=== PATIENT | female | born 1990 | race Caucasian/White ===

== ENCOUNTER 2017-08-01 08:13 | Outpatient (CLI) | payer OTHER | END 2017-08-01 08:14 | disposition critical access hospital (66) | LOC: EMS 08:13 | PROVIDERS: ATTEND Surgery | DX: R10.9 Unspecified abdominal pain (principal) | CPT/HCPCS: A0425; A0429 ==

== ENCOUNTER 2017-08-01 08:16 | Emergency (ER) | payer OTHER ==
[2017-08-01 08:32] LABS: BILIRUBIN,URINE NEGATIVE (NEGATIVE); KETONES,URINE (UA) NEGATIVE (NEGATIVE); OCCULT BLOOD,URINE LARGE (NEGATIVE)
[2017-08-01 08:33] LABS: CLARITY,URINE SL. CLOUDY (CLEAR)
[2017-08-01 08:35] LABS: HCG UR QUAL NEGATIVE
[2017-08-01 08:43] LABS: BACTERIA,URINE Moderate /HPF (None Seen); SQUAMOUS EPITHELIAL CELL,UR NONE SEEN (<= Few)
--- NOTE | 2017-08-01 08:44 | ED Physician Documentation ---
History of Present Illness - Stated complaint Stated Complaint: KIDNEY PX - Chief complaint Chief Complaint: Abd Pain - Additonal information Additional information: hx from pt 26 y/o f has had dysuria hematuria for a week self tx with azo today had severe R flank pain which has now subsided no fever chills NVD no vag bleed or dc doubts preg as on control Review of Systems Constitutional: denies: Fever, Chills Cardiac: denies: Chest pain / pressure Respiratory: denies: Dyspnea GI: denies: Abdominal Pain : reports: Dysuria, Hematuria. denies: Discharge, Vaginal bleeding Musculoskeletal: reports: Back pain Endocrine: denies: Easy bruising / bleeding Immunocompromised: denies: Immunocompromised PD PAST MEDICAL HISTORY - Past Medical History Past Medical History: No - Past Surgical History Past Surgical History: Yes /[employer]: Dilation and currettage - Present Medications Home Medications: Ambulatory Orders Medication Instructions Recorded Confirmed Cephalexin [Keflex] 500 mg PO Q6H #40 capsule 08/01/17 Sertraline HCl 50 mg PO DAILY 08/01/17 - Allergies Allergies/Adverse Reactions: Allergies Allergy/AdvReac Type Severity Reaction Status Date / Time No Known Drug Allergies Allergy Verified 08/01/17 08:21 - Social History Does the pt smoke?: No Smoking Status: Former smoker PD ED PE NORMAL - Vitals Vital signs reviewed: Yes - Cardiac Cardiac: RRR - Respiratory Respiratory: No respiratory distress, Clear bilaterally - Abdomen Abdomen: Soft, Other (mild suprapubic TTP, no focal RLQ TTP or peritoneal signs) - Back Back: No CVA TTP - Derm Derm: Normal color - Neuro Neuro: Alert and oriented X 3 Results - Vitals Vitals: Vital Signs - 24 hr 08/01/17 08:18 Temperature 36.3 C L Heart Rate 75 Respiratory 18 Rate Blood Pressure 147/73 H O2 Saturation 99 Oxygen O2 Source Room air - Labs Labs: Laboratory Tests 08/01/17 08:29 Urine Color ORANGE Urine Clarity SL. CLOUDY Urine pH 7.0 Ur Specific [place] 1.015 Urine Protein Urine Glucose (UA) Urine Ketones NEGATIVE Urine Occult Blood LARGE H Urine Nitrite Urine Bilirubin NEGATIVE Urine Urobilinogen Ur Leukocyte Esterase Urine RBC 11-25 H Urine WBC >25 H Ur Squamous Epith Cells NONE SEEN Urine Bacteria Moderate H Ur Microscopic Review INDICATED Urine Culture Comments INDICATED Urine HCG, Qual NEGATIVE - Rads (name of study) R kidney sono Radiology: See rad report (normal - no hydro or sign of stone) Departure - Departure Disposition: 01 Home, Self Care Clinical Impression: Pyelonephritis Condition: Good Instructions: ED Kidney Infec Female Prescriptions: Cephalexin [Keflex] 500 mg PO Q6H #40 capsule Comments: The urine definitely shows an infection. There is blood in the urine but no kidney stone seen on sonogram - so the blood is likely due to the infection. The test was negative I have prescribed antibiotics - since the infection involves the kidney you need to take the antibiotic for a full 10 days. A urine culture will be run as well - if the culture indicates a need to change antibiotics, the ER staff will call you Motrin and tylenol as needed for pain Drink plenty of fluids Follow up with your PMD for a recheck after finishing the antibiotics Return to the ER if worse Forms: Activity restrictions
[2017-08-01 10:13] VITALS: BP 136/97
--- NOTE | 2017-08-01 10:17 | Ultrasound Report ---
LIMITED RENAL ULTRASOUND: 08/01/2017 CLINICAL INDICATION: Hematuria right-sided pain. TECHNIQUE: Real-time scanning was performed with sales representative business courses static images obtained. FINDINGS: As specified, only imaging of the right kidney was performed. The right kidney is normal, measuring 11.5 x 4.8 x 4.8 cm. IMPRESSION: NORMAL RIGHT KIDNEY. TD: 08/01/2017 10:15
== END 2017-08-01 10:13 | disposition home or self-care (01) ==
LOC: ED 08:16
DX: N12 Tubulo-interstitial nephritis, not specified as acute or chronic (principal); R31.9 Hematuria, unspecified; Z87.891 Personal history of nicotine dependence
CPT/HCPCS: 76775; 81001; 81003; 81025; 87086; 99283